=== PATIENT | female | born 1985 | race Caucasian/White ===

== ENCOUNTER 2021-08-02 20:27 | Emergency (ER) | payer MEDICAID ==
[~2021-08-02] VITALS: Ht 160 cm; Wt 93.0 kg
[2021-08-02 20:40] VITALS: BP_SYST 121
--- NOTE | 2021-08-02 21:21 | NUR ---
ER Dr. Ribeiro at triage examining patient.
--- NOTE | 2021-08-02 21:36 | NUR ---
Patient to ER bed 6 to gown for evaluation. Side rails up. Report given to PRATIK Decker.
--- NOTE | 2021-08-02 21:40 | NUR ---
PT VERBALIZED CONCERN OF VAG BLEED- BLEEDING EXECIVELY. PENDING MD KIM
--- NOTE | 2021-08-02 22:00 | NUR ---
PENDING LABS AND DISPOSITION.
[2021-08-02 22:07] LABS: BASOPHILS # (AUTO) 0.2 K/uL (0.0-0.2); BASOPHILS % (AUTO) 2.4 % (0.0-2.0); EOSINOPHILS # (AUTO) 0.2 K/uL (0.0-0.4); EOSINOPHILS % (AUTO) 1.8 % (0.0-4.0); HEMATOCRIT 37.7 % (36-48); HEMOGLOBIN 13.2 g/dL (12.0-16.0); LYMPHOCYTES # (AUTO) 2.4 K/uL (1.0-5.5); LYMPHOCYTES % (AUTO) 24.9 % (20.5-51.5); MEAN CORPUSCULAR HEMOGLOBIN 31 pg (27-31); MEAN CORPUSCULAR HGB CONC 35 % (32-36); MEAN CORPUSCULAR VOLUME 90 fL (79.0-98.0); MONOCYTES # (AUTO) 0.9 K/uL (0.0-1.0); MONOCYTES % (AUTO) 9.4 % (1.7-9.3); NEUTROPHILS % (AUTO) 61.5 % (40.0-70.0); PLATELET COUNT (AUTO) 226 K/uL (130-430); RED BLOOD CELL COUNT(AUTO) 4.21 MIL/uL (4.2-6.2); RED CELL DISTRIBUTION WIDTH 13.3 % (9.0-15.0); WHITE BLOOD COUNT (AUTO) 9.8 K/uL (4.8-10.8)
--- NOTE | 2021-08-02 22:21 | NUR ---
Pelvic exam performed by Dr. Rodgers with PRATIK Morelos at bedside for entire examination. Patient tolerated procedure well. Patient assisted to position of comfort after examination.
[2021-08-02 22:27] LABS: INR 0.9 (0.8-1.2); PROTHROMBIN TIME 10.1 SECS (9.5-12.5)
[2021-08-02] MEDS ORDERED: TRAM50TA2 PO (22:41)
[2021-08-02 23:05] VITALS: BP_SYST 118
--- NOTE | 2021-08-02 23:05 | NUR ---
Patient given written and verbal discharge instructions and verbalizes understanding. ER MD discussed with patient the results and treatment provided. Patient in stable condition. ID arm band removed. Rx of Tramadol 50mg given, for vag pain. Patient educated on pain management and to follow up with PMD. Pain Scale 0/10. Opportunity for questions provided and answered.
== END 2021-08-02 23:05 | disposition home or self-care (01) ==
LOC: SED 20:27
DX: R10.2 Pelvic and perineal pain (principal)
CPT/HCPCS: 36415; 81002; 81025; 84702; 85025; 85610-TC; 85730-TC; 86900; 86901; 99283